=== PATIENT | male | born 1950 | race Caucasian/White ===

== ENCOUNTER → 2016-10-27 | Outpatient (CLI) | payer BC | END | disposition home or self-care (01) | LOC: CARD 08:38 | PROVIDERS: ATTEND Internal Medicine Cardiovascular Disease | DX: Z13.6 Encounter for screening for cardiovascular disorders (principal); R07.9 Chest pain, unspecified; I10 Essential (primary) hypertension | CPT/HCPCS: 93017 ==

== ENCOUNTER 2018-03-31 09:40 | Inpatient (IN) | payer MEDICARE, BC ==
[~2018-03-31] VITALS: Ht 166.4 cm; Wt 111.2 kg
[2018-03-31] MEDS ORDERED: SODIUM CHLORIDE 0.9% 1,000 ML IV ONE (10:30)
[2018-03-31 10:49] VITALS: BP 152/91
[2018-03-31] MEDS ORDERED: LOSA25TA25 PO (10:58)
[2018-03-31] MEDS ORDERED: NIFE60TA15 PO (10:58)
[2018-03-31] MEDS ORDERED: ATOR40TA78 PO (10:58)
[2018-03-31] MEDS ORDERED: CHOL500050 PO (10:58)
[2018-03-31] MEDS ORDERED: NITR0.6T4 SL (10:58)
[2018-03-31] MEDS ORDERED: PLEASE ENTER HEIGHT AND WEIGHT MC SCH (11:00)
[2018-03-31] MEDS ORDERED: MIDAZOLAM 1 MG/ML, 5ML ONE (13:13)
[2018-03-31] MEDS ORDERED: VERAPAMIL 2.5 MG/ML, 2ML ONE (13:13)
[2018-03-31] MEDS ORDERED: TICAGRELOR 90 MG TABLET ONE (13:13)
[2018-03-31] MEDS ORDERED: FENTANYL PF 100 MCG/2ML ONE (13:13)
[2018-03-31] MEDS ORDERED: HEPARIN 1,000 UNITS/ML, 10ML ONE (13:14)
[2018-03-31] MEDS ORDERED: LIDOCAINE 2%, 20ML ONE (13:14)
[2018-03-31] MEDS ORDERED: BIVALIRUDIN 250 MG ONE ×3 (13:14→15:47)
[2018-03-31] MEDS ORDERED: ASPIRIN 325 MG TABLET EC ONE (14:13)
[2018-03-31] MEDS ORDERED: SODIUM CHLORIDE 0.9% 1,000 ML IV SCH (14:17)
[2018-03-31] MEDS ORDERED: BIVALIRUDIN 250 MG in DEXTROSE 5% 50 ML IV SCH (14:23)
[2018-03-31] MEDS ORDERED: BISACODYL 5 MG EC TABLET PO PRN (14:30)
[2018-03-31] MEDS ORDERED: ONDANSETRON 2MG/ML, 2ML IVPush PRN (14:30)
[2018-03-31] MEDS ORDERED: ZOLPIDEM 5MG TABLET PO PRN (14:30)
[2018-03-31] MEDS ORDERED: ACETAMINOPHEN 325 MG TABLET PO PRN (14:30)
[2018-03-31] MEDS ORDERED: NITROGLYCERIN 0.4 MG BOTTLE (25 TABS) SL PRN (17:00)
[2018-03-31 18:59] VITALS: BP 127/74
[2018-03-31] MEDS: TICAGRELOR 90 MG TABLET PO SCH (20:42)
[2018-03-31] MEDS ORDERED: ATORVASTATIN 80 MG TABLET PO SCH (21:00)
[2018-04-01 00:53] VITALS: BP 149/78
[2018-04-01 05:27] LABS: ANION GAP 8 mmol/L (5-15); CALCIUM 8.5 mg/dL (8.5-10.1); CHLORIDE 108 mmol/L (98-107)
[2018-04-01 05:28] LABS: CREATININE 1.28 mg/dL (0.7-1.3)
[2018-04-01 07:33] VITALS: BP 146/85
[2018-04-01] MEDS ORDERED: LOSARTAN 50MG TABLET PO SCH (09:00)
[2018-04-01] MEDS ORDERED: niFEDipine ER 60 MG TABLET.ER PO SCH (09:00)
[2018-04-01] MEDS ORDERED: ASPIRIN 81 MG TABLET EC PO SCH (09:00)
[2018-04-01] MEDS: TICAGRELOR 90 MG TABLET PO SCH (09:15)
[2018-04-01] MEDS ORDERED: CARV3.1212 PO (09:32)
[2018-04-01] MEDS ORDERED: TICA90TA PO (09:32)
[2018-04-01] MEDS ORDERED: ASPI81TA45 PO (09:32)
[2018-04-07] MEDS ORDERED: ERGOCALCIFEROL 50,000 UNIT CAPSULE PO SCH (09:00)
== END 2018-04-01 11:03 | disposition home or self-care (01) | DRG 246 ==
LOC: CACL 09:40 → ORIP 14:17 → 5SO 16:14 → DCLOUNGE 04-01 10:50
PROVIDERS: ADMIT Internal Medicine Cardiovascular Disease; ATTEND Internal Medicine Cardiovascular Disease
PROC: 027034Z Dilation of Coronary Artery, One Artery with Drug-eluting Intraluminal Device, Percutaneous Approach (ICD-10-PCS; principal; 2018-03-31)
PROC: 4A023N7 Measurement of Cardiac Sampling and Pressure, Left Heart, Percutaneous Approach (ICD-10-PCS; 2018-03-31)
PROC: B2111ZZ Fluoroscopy of Multiple Coronary Arteries using Low Osmolar Contrast (ICD-10-PCS; 2018-03-31)
PROC: B2151ZZ Fluoroscopy of Left Heart using Low Osmolar Contrast (ICD-10-PCS; 2018-03-31)
DX: I25.110 Atherosclerotic heart disease of native coronary artery with unstable angina pectoris (principal); I50.33 Acute on chronic diastolic (congestive) heart failure; Z68.41 Body mass index [BMI] 40.0-44.9, adult; E66.9 Obesity, unspecified; I10 Essential (primary) hypertension; I25.5 Ischemic cardiomyopathy; E78.2 Mixed hyperlipidemia; R00.1 Bradycardia, unspecified; I11.0 Hypertensive heart disease with heart failure
CPT/HCPCS: 36415; 80048; 93005; 93458; 99156; 99157; C1769; C1894; C9600; G0378; J0583; J1644; J2250; J3010; J3490; C1725; C1874; C1887; Q9967

== ENCOUNTER 2018-05-13 01:39 | Emergency (ER) | payer MEDICARE, BC ==
[~2018-05-13] VITALS: Ht 165.1 cm; Wt 110.0 kg
[~2018-05-13 01:39] MED LIST: ASPI81TA45 PO; ATOR40TA78 PO; CARV3.1212 PO; CHOL500050 PO; LOSA25TA25 PO; NIFE60TA15 PO; NITR0.6T4 SL; TICA90TA PO
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
--- NOTE | 2018-05-13 02:21 | NUR ---
PT IN RAD
[2018-05-13 02:26] VITALS: BP 162/83
== END 2018-05-13 03:10 | disposition home or self-care (01) ==
LOC: ED 02:53
DX: G89.11 Acute pain due to trauma (principal); M79.662 Pain in left lower leg; V43.52XA Car driver injured in collision with other type car in traffic accident, initial encounter; Y93.89 Activity, other specified; Y92.488 Other paved roadways as the place of occurrence of the external cause; Y99.8 Other external cause status
CPT/HCPCS: 70450; 93005; 99284

== ENCOUNTER → 2018-08-23 | Outpatient (CLI) | payer MEDICARE, BC ==
[2018-08-23 13:20] LABS: ALBUMIN 3.8 g/dL (3.4-5.0); ANION GAP 6 mmol/L (5-15); CALCIUM 8.9 mg/dL (8.5-10.1); CHLORIDE 108 mmol/L (98-107)
[2018-08-23 13:26] LABS: ALANINE AMINOTRANSFERASE 26 U/L (12-78); ALKALINE PHOSPHATASE 61 U/L (45-117); BILIRUBIN,TOTAL 1.3 mg/dL (0.2-1.0); CHOL/HDL RATIO 3.8; CHOLESTEROL, TOTAL 125 mg/dL (140-239); CREATININE 1.06 mg/dL (0.7-1.3); HDL CHOL % 26 % (26-37); HDL CHOLESTEROL (DIRECT) 33 mg/dL (40-60); LDL CHOLESTEROL,CALCULATED 61 mg/dL (54-169); LDL/HDL RATIO 1.8 (0.5-3.0); TOTAL PROTEIN 7.2 g/dL (6.4-8.2); TRIGLYCERIDES 157 mg/dL (50-200); VLDL CHOLESTEROL 31 mg/dL (0-25)
== END | disposition home or self-care (01) ==
LOC: CFH 11:19
PROVIDERS: ATTEND Internal Medicine Cardiovascular Disease
DX: I10 Essential (primary) hypertension (principal); E78.2 Mixed hyperlipidemia
CPT/HCPCS: 36415; 80053; 80061

== ENCOUNTER 2019-09-01 08:58 | Outpatient (CLI) | payer MEDICARE, BC ==
[~2019-09-01 08:58] MED LIST changes: +NIFE-6 PO; -NIFE60TA15 PO; +REGADENOSON 0.4 MG/5 ML SYRINGE ONE
== END 2019-09-01 23:59 | disposition home or self-care (01) ==
LOC: CFH 08:58
PROVIDERS: ATTEND Internal Medicine Cardiovascular Disease
DX: I25.9 Chronic ischemic heart disease, unspecified (principal); I10 Essential (primary) hypertension; Z98.61 Coronary angioplasty status
CPT/HCPCS: 78452; 93017; A9502; J2785

== ENCOUNTER → 2020-04-12 | Outpatient (CLI) | payer MEDICARE, BC ==
[~2020-04-12] MED LIST changes: +ALLO100T30 PO; +AMIO200T42 PO; +CARV6.252 PO; +DOCU100C33 PO; +HYDR-3237 PO; +INSU100V5 IVPush; +LISI5TAB7 PO; -REGADENOSON 0.4 MG/5 ML SYRINGE ONE; +TAMS-11 PO
[2020-04-12 11:06] LABS: ALBUMIN 3.6 g/dL (3.4-5.0); ANION GAP 4 mmol/L (5-15); CALCIUM 8.6 mg/dL (8.5-10.1); CHLORIDE 110 mmol/L (98-107)
[2020-04-12 11:11] LABS: ALANINE AMINOTRANSFERASE 24 U/L (12-78); ALKALINE PHOSPHATASE 41 U/L (45-117); BILIRUBIN,TOTAL 0.9 mg/dL (0.2-1.0); CHOLESTEROL, TOTAL 122 mg/dL (140-239); CREATININE 1.12 mg/dL (0.7-1.3); HDL CHOL % 50 % (26-37); HDL CHOLESTEROL (DIRECT) 61 mg/dL (40-60); LDL CHOLESTEROL,CALCULATED 45 mg/dL (54-169); LDL/HDL RATIO 0.7 (0.5-3.0); TOTAL PROTEIN 6.3 g/dL (6.4-8.2); TRIGLYCERIDES 78 mg/dL (50-200); VLDL CHOLESTEROL 16 mg/dL (0-25)
== END | disposition home or self-care (01) ==
LOC: LAB 10:06
PROVIDERS: ATTEND Internal Medicine Cardiovascular Disease
DX: E78.2 Mixed hyperlipidemia (principal); I10 Essential (primary) hypertension; Z95.1 Presence of aortocoronary bypass graft; Z98.61 Coronary angioplasty status
CPT/HCPCS: 36415; 80053; 80061

== ENCOUNTER 2020-05-28 15:16 | Outpatient (CLI) | payer MEDICARE, BC ==
[2020-05-28 15:40] LABS: ALANINE AMINOTRANSFERASE 25 U/L (12-78); ALBUMIN 3.8 g/dL (3.4-5.0); ANION GAP 5 mmol/L (5-15); CALCIUM 8.8 mg/dL (8.5-10.1); CHLORIDE 111 mmol/L (98-107); CREATININE 1.09 mg/dL (0.7-1.3)
[2020-05-28 15:45] LABS: BASOPHILS % (AUTO) 1 % (0-1); EOSINOPHILS % (AUTO) 3 % (1-7); LYMPHOCYTES % (AUTO) 33 % (22-44); MEAN CORPUSCULAR HEMOGLOBIN 31.1 pg (27.5-34.5); MEAN CORPUSCULAR HGB CONC 34.4 g/dL (33.2-36.2); MEAN PLATELET VOLUME 8.2 fL (7.4-10.4); MONOCYTES % (AUTO) 8 % (2-9); NEUTROPHILS % (AUTO) 56 % (42-75); PLATELET COUNT 222 x10^3/uL (130-400); RED BLOOD COUNT 4.61 x10^6/uL (4.38-5.82); RED CELL DISTRIBUTION WIDTH 14.2 % (9.4-14.8)
[2020-05-28 15:46] LABS: MD NO
[2020-05-28 15:49] LABS: ALKALINE PHOSPHATASE 52 U/L (45-117); BILIRUBIN,TOTAL 1.2 mg/dL (0.2-1.0); CHOL/HDL RATIO 2.8; CHOLESTEROL, TOTAL 139 mg/dL (140-239); FREE T4 (FREE THYROXINE) 1.06 ng/dL (0.76-1.46); HDL CHOL % 35 % (26-37); HDL CHOLESTEROL (DIRECT) 49 mg/dL (40-60); LDL CHOLESTEROL,CALCULATED 66 mg/dL (54-169); LDL/HDL RATIO 1.3 (0.5-3.0); TOTAL PROTEIN 6.8 g/dL (6.4-8.2); TRIGLYCERIDES 118 mg/dL (50-200); VLDL CHOLESTEROL 24 mg/dL (0-25)
== END 2020-05-28 23:59 | disposition home or self-care (01) ==
LOC: LAB 15:16
PROVIDERS: ATTEND Student in an Organized Health Care Education/Training Program
DX: I10 Essential (primary) hypertension (principal); E66.9 Obesity, unspecified; R73.03 Prediabetes
CPT/HCPCS: 36415; 80053; 80061; 83036; 84439; 84443; 84550; 85025